=== PATIENT | male | born 1965 | race African-American/Black ===

== ENCOUNTER 2017-07-10 06:39 | Day surgery (SDC) | payer BC ==
[~2017-07-10] VITALS: Ht 185.4 cm; Wt 154.2 kg
[~2017-07-10 06:39] MED LIST: GABA300C10 PO; HYDR-4683 PO; HYDR25TA4 PO; IBUP800T24 PO; LOSA25TA9 PO; NIFE60TA59 PO
[2017-07-10] MEDS ORDERED: ceFAZolin 1GM/50ML 100 ML IV ONE (07:38)
[2017-07-10] MEDS ORDERED: LIDOCAINE 1% HCL (LOCAL ANESTH.) INJ 20ML MDV ONE (07:48)
[2017-07-10] MEDS ORDERED: BUPIVACAINE 0.25% INJ 50ML VIAL ONE (07:49)
[2017-07-10] MEDS ORDERED: PROPOFOL 10 MG/ML 20 ML IV ONE (07:51)
[2017-07-10] MEDS ORDERED: MIDAZOLAM HCL 1MG/1ML-2 ML VIAL ONE (07:51)
[2017-07-10] MEDS ORDERED: fentaNYL CITRATE 100 MCG/2 ML VL ONE (07:51)
[2017-07-10] MEDS ORDERED: ONDANSETRON HCL 4 MG/2 ML VIAL ONE (07:51)
[2017-07-10] MEDS ORDERED: SUCCINYLCHOLINE CHLORIDE 20 MG/ML 10ML VIAL IV ONE (08:00)
[2017-07-10] MEDS ORDERED: TRANEXAMIC ACID 1,000 mg/10ml INJ VIAL ONE (09:06)
[2017-07-10] MEDS ORDERED: BUPIVACAINE W/ EPINEPH 0.25% INJ 50ML MDV ONE (09:06)
[2017-07-10] MEDS ORDERED: METOCLOPRAMIDE HCL 5MG/ml INJ 2ml VIAL IV ONE (09:15)
[2017-07-10] MEDS ORDERED: KETOROLAC TROMETH 30 MG/ML 1ML VIAL IV ONE (09:15)
[2017-07-10] MEDS ORDERED: MORPHINE SULFATE 4 MG/ML SYR/VIAL ONE (09:26)
[2017-07-10] MEDS ORDERED: MORPHINE SULFATE 4 MG/ML SYR/VIAL IV ONE (09:45)
[2017-07-10 10:47] VITALS: BP 152/93
== END 2017-07-10 10:47 | disposition home or self-care (01) ==
LOC: SUR 06:39
PROVIDERS: ATTEND Orthopaedic Surgery Adult Reconstructive Orthopaedic Surgery
DX: G56.02 Carpal tunnel syndrome, left upper limb (principal); E66.01 Morbid (severe) obesity due to excess calories; Z68.41 Body mass index [BMI] 40.0-44.9, adult; I10 Essential (primary) hypertension; F10.99 Alcohol use, unspecified with unspecified alcohol-induced disorder
CPT/HCPCS: 29848; J0330; J0690; J2001; J2250; J2270; J2405; J2704; J3010; J3490